=== PATIENT | female | born 1980 | race Caucasian/White ===

== ENCOUNTER 2021-07-31 20:57 | Emergency (ER) | payer OTHER ==
[~2021-07-31] VITALS: Ht 160 cm; Wt 86.2 kg
[2021-07-31] MEDS ORDERED: KETOROLAC TROMETH 60MG/2ML VIAL IM ONE (21:45)
[2021-07-31 23:26] VITALS: BP 158/98
== END 2021-07-31 23:52 | disposition home or self-care (01) ==
LOC: ER 20:59
DX: S50.12XA Contusion of left forearm, initial encounter (principal); M25.512 Pain in left shoulder; Z88.1 Allergy status to other antibiotic agents; V49.9XXA Car occupant (driver) (passenger) injured in unspecified traffic accident, initial encounter; Y93.89 Activity, other specified; Y92.89 Other specified places as the place of occurrence of the external cause; Y99.8 Other external cause status
CPT/HCPCS: 71045; 73000; 73030; 73060; 73090; 73100; 96372; 99284; J1885